=== PATIENT | male | born 1930 | race Caucasian/White ===

== ENCOUNTER → 2017-09-01 | Outpatient (CLI) | payer MEDICARE, BC ==
[~2017-09-01] MED LIST: AMIO100T PO; APIX2.5T PO; ATOR20TA22 PO; ATOR40TA24 PO; BISA-236 RC; COUMADIN; CYAN500T7; ENOX80DI8 SQ; FENO48TA15 PO; FERR140T2 PO; FERR240T15 PO; INSU100C14 SQ; LANI SQ; LANI SUBQ; LIPITOR; LIS20 PO; LISI-349 PO; LOVA40TA89 PO; MEMA28CA; METF-1 PO; MOM PO; OMEG-55; OMEP-218 PO; OXYC-373 PO; OXYC-865 PO; PER PO; PRILOSEC; PRO150 PO; RYTHMOL; TRAM-420 PO; WARF2.5T4 PO; WARF2.5T62 PO; ZANTAC; ZESTRIL; [UNRECOGNIZED DRUG - CODE]
--- NOTE | 2017-09-01 11:10 | RADIOLOGY IMAGING REPORT ---
FACILITY: [facility] [place] PATIENT NAME: Hugo Ashford : 1930 MR: [id number] V: [id number] EXAM DATE: ORDERING PHYSICIAN: ASHLEE GOVEA TECHNOLOGIST: Location: [facility] Patient: Hugo Ashford : 1930 Visit/Account:[id number] Date of Sevice: 09/01/2017 Exam type: CHEST PA AND LAT History: Shortness of breath no pain, check up Comparison: June 09, 2016. Findings: The lungs are free of acute effusions, infiltrates or edema. Cardiac silhouette is normal in size. Trachea is in midline. There are mild spondylotic changes in the thoracic spine. IMPRESSION: 1. No acute cardiac pulmonary process is seen Report Dictated By: Codi Klein MD at 09/01/2017 11:04 AM Report E-Signed By: Codi Klein MD at 09/01/2017 11:06 AM WSN:PRINCESS
== END ==
LOC: RESP 01:56
PROVIDERS: ATTEND Internal Medicine Clinical Cardiac Electrophysiology
DX: M47.894 Other spondylosis, thoracic region (principal); Z79.899 Other long term (current) drug therapy
CPT/HCPCS: 71046; 94010; 94726; 94729